=== PATIENT | female | born 1995 | race African-American/Black ===

== ENCOUNTER 2018-05-10 04:47 | Emergency (ER) | payer SELFPAY ==
--- NOTE | 2018-05-10 07:16 | ER Document Report ---
ED GI/ - General Chief Complaint: Vaginal Discharge Stated Complaint: VAGINAL PROBLEM Time Seen by Provider: 05/10/18 07:06 Mode of Arrival: Ambulatory Information source: Patient Notes: Patient presents with complaint of foul-smelling vaginal discharge. Patient reports the discharge is no different than her usual other than the smell. Patient says this is been going on for approximately 3-4 days. Patient reports history of bacterial vaginosis and states this is similar. Patient denies any other symptoms to include abdominal pain, vaginal pain or fever. Patient denies possibility of . TRAVEL OUTSIDE OF THE [place] IN LAST 30 DAYS: No - Related Data Allergies/Adverse Reactions: No Known Allergies Allergy (Unverified 05/10/18 06:25) Past Medical History - General Information source: Patient - Social History Smoking Status: Never Smoker Chew tobacco use (# tins/day): No Frequency of alcohol use: None Drug Abuse: None Family History: Reviewed & Not Pertinent Patient has suicidal ideation: No Patient has homicidal ideation: No - Medical History Medical History: Negative Renal/ Medical History: Denies: Hx Peritoneal Dialysis Surgical Hx: Negative - Immunizations Immunizations up to date: Yes Review of Systems - Review of Systems Constitutional: No symptoms reported EENT: No symptoms reported Cardiovascular: No symptoms reported Respiratory: No symptoms reported Gastrointestinal: No symptoms reported Genitourinary: No symptoms reported Female Genitourinary: Vaginal odor Musculoskeletal: No symptoms reported Skin: No symptoms reported Hematologic/Lymphatic: No symptoms reported Neurological/Psychological: No symptoms reported Physical Exam - Vital signs Vitals: Temp Pulse Resp BP Pulse Ox 98 F 108 H 16 123/78 100 05/10/18 04:56 05/10/18 04:56 05/10/18 04:56 05/10/18 04:56 05/10/18 04:56 - Notes Notes: PHYSICAL EXAMINATION: GENERAL: Well-appearing, well-nourished and in no acute distress. HEAD: Atraumatic, normocephalic. EYES: Pupils equal round and reactive to light, extraocular movements intact, conjunctiva are normal. ENT: Nares patent, oropharynx clear without exudates. Moist mucous membranes. NECK: Normal range of motion, supple without lymphadenopathy LUNGS: Breath sounds clear to auscultation bilaterally and equal. No wheezes rales or rhonchi. HEART: Regular rate and rhythm without murmurs ABDOMEN: Soft, nontender, nondistended abdomen. No guarding, no rebound. No masses appreciated. Female : Purulent non-foul smelling white discharge from the cervical loss noted on speculum exam. No cervical motion tenderness, no adnexal tenderness. Musculoskeletal: Normal range of motion, no pitting or edema. No cyanosis. NEUROLOGICAL: Cranial nerves grossly intact. Normal speech, normal gait. Normal sensory, motor exams PSYCH: Normal mood, normal affect. SKIN: Warm, Dry, normal turgor, no rashes or lesions noted. Course - Re-evaluation Re-evalutation: 3+ bacteria noted on wet mount. Patient will be treated for bacterial vaginosis. - Vital Signs Vital signs: Temp Pulse Resp BP Pulse Ox 98.0 F 108 H 16 102/79 99 05/10/18 09:55 05/10/18 09:55 05/10/18 04:56 05/10/18 09:55 05/10/18 09:55 - Laboratory Laboratory results interpreted by me: 05/10/18 06:00 Urine Protein 30 H Ur Leukocyte Esterase TRACE H Discharge - Discharge Clinical Impression: Bacterial vaginosis Condition: Stable Disposition: HOME, SELF-CARE Additional Instructions: Vaginosis, Bacterial Your exam shows you have bacterial vaginosis. This condition is due to an overgrowth of bacteria in the vagina. Symptoms may include vaginal itching or pain, a smelly discharge, and sometimes burning with urination. Normally this is not transmitted by sexual contact. Vaginosis can be treated with oral or topical antibiotics. Metronidazole ( Flagyl) pills are usually effective. Topical vaginal creams include Cleocin and Metro-Gel. You should avoid sexual contact until your symptoms are all better. Call the doctor if you develop pelvic pain, fever, or problems with urination, or if you don't improve as expected. Metronidazole Metronidazole (Flagyl) has been prescribed. This medication is used to kill a type of bacteria called anaerobes, and protozoan parasites such as trichomonas and Giardia. Flagyl often causes a metallic taste in the mouth and mild nausea. Do not use alcohol in any form with Flagyl (including alcohol in medication elixirs). Flagyl interacts with alcohol to cause flushing, palpitations, headache, stomach cramps, and vomiting. Do not use Flagyl if you are taking Antabuse (disulfiram). Call the doctor at once if you develop rash, shortness of breath, itching, or lightheadedness. Please take medication as prescribed. Absolutely no alcohol consumption while taking this medicine. No sexual activity until you completed the entire course of medication for the next 7 days. Prescriptions: Metronidazole [Flagyl 500 mg Tablet] 500 mg PO BID #14 tablet
[2018-05-10 07:26] LABS: APPEARANCE,URINE SLIGHTLY-CLOUDY; BILIRUBIN,URINE NEGATIVE (NEGATIVE); COLOR,URINE YELLOW; GLUCOSE, URINE NEGATIVE (NEGATIVE); KETONES,URINE NEGATIVE (NEGATIVE); LEUKOCYTE ESTERASE,URINE TRACE (NEGATIVE); NITRITE,URINE NEGATIVE (NEGATIVE); PROTEIN,URINE 30 mg/dL (NEGATIVE); URINE SPECIFIC GRAVITY 1.006; UROBILINOGEN,URINE NEGATIVE mg/dL (<2.0)
[2018-05-10 08:08] LABS: T.VAGINALIS (WET MOUNT) NO TRICHOMONAS SEEN; YEAST (WET MOUNT) NO YEAST SEEN
[2018-05-10 08:09] LABS: BACTERIA (WET MOUNT) 3+ BACTERIA SEEN; EPITHELIALS (WET MOUNT) 3+ EPITHELIALS SEEN; RBCS (WET MOUNT) NO RBCS SEEN; WBCS (WET MOUNT) 2+ WBCS SEEN
[2018-05-10 09:32] LABS: CHLAM PCR NOT DETECTED (NOT DETECT); GON PCR NOT DETECTED (NOT DETECT)
[2018-05-10 09:55] VITALS: BP 102/79
== END 2018-05-10 09:55 | disposition home or self-care (01) ==
LOC: ER 04:47
DX: N76.0 Acute vaginitis (principal); B96.89 Other specified bacterial agents as the cause of diseases classified elsewhere
CPT/HCPCS: 81001; 87210; 87491; 87591; 99283

== ENCOUNTER 2018-07-18 04:56 | Emergency (ER) | payer SELFPAY ==
[2018-07-18] MEDS ORDERED: NORMAL SALINE 1000 ML 1,000 ML IV ONE ×2 (05:11→05:21)
[2018-07-18] MEDS ORDERED: ONDANSETRON HCL INJ/PF 4 MG/2 ML SDV IV ONE (05:21)
--- NOTE | 2018-07-18 05:25 | ER Document Report ---
ED Medical Screen (RME) - General Chief Complaint: Nausea/Vomiting Stated Complaint: CHEST PAINS, VOMITING, CONGESTIONS, SORE THROAT Time Seen by Provider: 07/18/18 05:15 Notes: 22-year-old female chief complaint of cold symptoms for a week but worsening over the past day with 2 episodes of vomiting and a pain in her left lower rib area with inspiration. Denies fevers. States she is felt dry and dehydrated. Denies any abdominal pain. Denies dizziness or current chest pain. TRAVEL OUTSIDE OF THE [place] IN LAST 30 DAYS: No - Related Data Allergies/Adverse Reactions: No Known Allergies Allergy (Unverified 05/10/18 06:25) Past Medical History Renal/ Medical History: Denies: Hx Peritoneal Dialysis - Immunizations Immunizations up to date: Yes Physical Exam - Vital signs Vitals: Temp Pulse Resp BP Pulse Ox 98.1 F 78 20 133/68 H 98 07/18/18 05:01 07/18/18 05:01 07/18/18 05:01 07/18/18 05:01 07/18/18 05:01 - General General appearance: Appears well In distress: None - Abdominal Inspection: Normal Tenderness: Nontender Course - Re-evaluation Re-evalutation: I have greeted and performed a rapid initial assessment of this patient. A comprehensive ED assessment and evaluation of the patient, analysis of test results and completion of the medical decision making process will be conducted by additional ED providers. - Vital Signs Vital signs: Temp Pulse Resp BP Pulse Ox 98.1 F 78 20 133/68 H 98 07/18/18 05:01 07/18/18 05:01 07/18/18 05:01 07/18/18 05:01 07/18/18 05:01
[2018-07-18 05:35] LABS: ABSOLUTE EOSINOPHILS # (AUTO) 0.3 10^3/uL (0.0-0.6); ABSOLUTE LYMPHOCYTES (AUTO) 3.2 10^3/uL (0.5-4.7); ABSOLUTE MONOCYTES (AUTO) 1.2 10^3/uL (0.1-1.4); ABSOLUTE NEUT (AUTO) 8.1 10^3/uL (1.7-8.2); BASOPHILS % (AUTO) 0.2 % (0-2); EOSINOPHILS % (AUTO) 2.4 % (0-6); HEMATOCRIT 40.6 % (36.0-47.0); HEMOGLOBIN 13.9 g/dL (12.0-15.5); MEAN CORPUSCULAR HEMOGLOBIN 33.4 pg (27.0-33.4); MEAN CORPUSCULAR HGB CONC 34.3 g/dL (32.0-36.0); MEAN CORPUSCULAR VOLUME 97 fl (80-97); MONOCYTES % (AUTO) 9.3 % (3-13); PLATELET COUNT 241 10^3/uL (150-450); RED BLOOD COUNT 4.17 10^6/uL (3.72-5.28); RED CELL DISTRIBUTION WIDTH 12.4 % (11.5-14.0); SEGMENTED NEUTROPHILS % (AUTO) 63.1 % (42-78); TOTAL CELLS COUNTED % (AUTO) 100 %; WHITE BLOOD COUNT 12.9 10^3/uL (4.0-10.5)
[2018-07-18 05:49] LABS: ALANINE AMINOTRANSFERASE 13 U/L (9-52); ALBUMIN 4.8 g/dL (3.5-5.0); ALKALINE PHOSPHATASE 69 U/L (38-126); ANION GAP 14 (5-19); ASPARTATE AMINO TRANSFERASE 23 U/L (14-36); BILIRUBIN,DIRECT 0.2 mg/dL (0.0-0.4); BILIRUBIN,TOTAL 1.2 mg/dL (0.2-1.3); BLOOD UREA NITROGEN 10 mg/dL (7-20); CALCIUM 10.3 mg/dL (8.4-10.2); CARBON DIOXIDE 28 mmol/L (22-30); CHLORIDE 100 mmol/L (98-107); GLUCOSE 93 mg/dL (75-110); POTASSIUM 3.9 mmol/L (3.6-5.0); SODIUM 141.9 mmol/L (137-145); TOTAL PROTEIN 8.3 g/dL (6.3-8.2)
--- NOTE | 2018-07-18 05:51 | RADIOLOGY REPORT (SQ) ---
EXAM DESCRIPTION: XR CHEST 2 VIEWS COMPLETED DATE/TME: 07/18/2018 05:21 CLINICAL HISTORY: 22 years Female, left lower chest pain COMPARISON: None. FINDINGS: Increased lung volume, clear parenchyma, normal cardiac silhouette, and intact bony thorax. IMPRESSION: No acute cardiopulmonary findings.
[2018-07-18 06:41] LABS: APPEARANCE,URINE CLEAR; BILIRUBIN,URINE NEGATIVE (NEGATIVE); COLOR,URINE YELLOW; GLUCOSE, URINE NEGATIVE (NEGATIVE); KETONES,URINE NEGATIVE (NEGATIVE); LEUKOCYTE ESTERASE,URINE NEGATIVE (NEGATIVE); NITRITE,URINE NEGATIVE (NEGATIVE); PROTEIN,URINE NEGATIVE (NEGATIVE); URINE SPECIFIC GRAVITY 1.006
--- NOTE | 2018-07-18 06:53 | ER Document Report ---
ED General - General Chief Complaint: Nausea/Vomiting Stated Complaint: CHEST PAINS, VOMITING, CONGESTIONS, SORE THROAT Time Seen by Provider: 07/18/18 05:15 Mode of Arrival: Ambulatory Information source: Patient TRAVEL OUTSIDE OF THE [place] IN LAST 30 DAYS: No - HPI Patient complains to provider of: nausea Onset: Other - 22-year-old otherwise healthy female that presents for evaluation of nausea as well as symptoms suggestive of a cold over the last week which she attributes to sharing food and drink with a sick child. She has been feeling intermittently warm at night since then. She has had 2 episodes of emesis which prompted her to seek care this morning. She notes that she had gone to smoke a cigarette last night while having difficulty in sleeping thereafter upon returning to the house had the sensation that she was nauseous and going to vomit. She denies fevers, she denies chills, she denies abdominal pain constipation dysuria rashes or other symptoms. In the past she has had seasonal allergies. - Related Data Allergies/Adverse Reactions: No Known Allergies Allergy (Unverified 05/10/18 06:25) Past Medical History - General Information source: Patient - Social History Smoking Status: Never Smoker Smoking Education Provided: Yes Family History: Reviewed & Not Pertinent Patient has suicidal ideation: No Patient has homicidal ideation: No Renal/ Medical History: Denies: Hx Peritoneal Dialysis - Immunizations Immunizations up to date: Yes Review of Systems - Review of Systems -: Yes All other systems reviewed and negative Physical Exam - Vital signs Vitals: Temp Pulse Resp BP Pulse Ox 98.1 F 78 20 133/68 H 98 07/18/18 05:01 07/18/18 05:01 07/18/18 05:01 07/18/18 05:01 07/18/18 05:01 - General General appearance: Appears well In distress: None - HEENT Head: Normocephalic Eyes: Normal Conjunctiva: Normal Cornea: Normal Extraocular movements intact: Yes Eyelashes: Normal Pupils: PERRL - Respiratory Respiratory status: No respiratory distress Chest status: Nontender Breath sounds: Normal Chest palpation: Normal - Cardiovascular Rhythm: Regular Heart sounds: Normal auscultation Murmur: No - Abdominal Inspection: Normal Distension: No distension Bowel sounds: Normal Tenderness: Nontender Organomegaly: No organomegaly - Back Back: Normal, Nontender - Extremities General upper extremity: Normal inspection, Nontender, Normal color, Normal ROM , Normal temperature General lower extremity: Normal inspection, Nontender, Normal color, Normal ROM , Normal temperature, Normal weight bearing. No: Jenifer's sign - Neurological Neuro grossly intact: Yes Cognition: Normal Orientation: AAOx4 Fitzhugh Coma Scale Eye Opening: Spontaneous Stacie Coma Scale Verbal: Oriented Fitzhugh Coma Scale Motor: Obeys Commands Fitzhugh Coma Scale Total: 15 Speech: Normal Motor strength normal: LUE, RUE, LLE, RLE Sensory: Normal - Psychological Associated symptoms: Normal affect, Normal mood Course - Re-evaluation Re-evalutation: 07/18/18 06:50 22-year-old female with signs and symptoms suggestive of a cold. She did have 2 episodes of emesis one several days ago and one this morning. She also complains of some dry mouth. On examination she is remarkably well-appearing, she has a normal cardiopulmonary examination, has a normal work of breathing, has a reassuring abdominal examination without any focal rebound or guarding. Prior to my evaluation she had labs drawn as well as a chest x-ray performed and fluids ordered as well as an antinausea medication. While I am evaluating her in the room she is actively eating. She was able to drink an entire bottle of juice as well prior to my evaluation. On review her chest x-ray is unremarkable, her labs are reassuring, because she is able to tolerate p.o. with a reassuring abdominal examination and signs and symptoms suggestive of a cold we will plan for her to undergo discharge with return precautions. I did speak to her about the importance of tobacco cessation moving forward. - Vital Signs Vital signs: Temp Pulse Resp BP Pulse Ox 98.1 F 78 20 133/68 H 98 07/18/18 05:01 07/18/18 05:01 07/18/18 05:01 07/18/18 05:01 07/18/18 05:01 - Laboratory Result Diagrams: 07/18/18 05:25 07/18/18 05:25 Laboratory results interpreted by me: 07/18/18 07/18/18 07/18/18 05:25 05:25 06:30 WBC 12.9 H Calcium 10.3 H Total Protein 8.3 H Urine Urobilinogen 4.0 H Discharge - Discharge Clinical Impression: Tobacco use URI (upper respiratory infection) Qualifiers: URI type: unspecified URI Qualified Code(s): J06.9 - Acute upper respiratory infection, unspecified Emesis Qualifiers: Vomiting type: unspecified Vomiting Intractability: unspecified Nausea presence : unspecified Qualified Code(s): R11.10 - Vomiting, unspecified Condition: Good Disposition: HOME, SELF-CARE Instructions: Viral Syndrome ([facility]), Antinausea Medication ([facility]), Acetaminophen Additional Instructions: You were seen today in the emergency department for your nausea, your pain, and your throat discomfort. Your blood work shows that you are not anemic. Your blood work shows that you are not markedly dehydrated. Your chest x-ray is normal. I think that you have a viral infection. You should use Motrin as well as Tylenol to help with your symptoms, take 400 mg of Motrin every 6 hours and 1 g of Tylenol every 6 hours. Make sure you are drinking lots of fluids. Use the nausea medication prescribed to you as needed. Return for worsening fevers or chills worsening pain or lightheadedness otherwise schedule an appointment with your primary physician in the next 3 days for a recheck. Prescriptions: Acetaminophen [Pain & Fever] 500 mg PO Q6H PRN #50 tablet PRN Reason: Ibuprofen [Ibu] 400 mg PO Q6 PRN #40 tablet PRN Reason: Ondansetron [Zofran Odt 4 mg Tablet] 1 - 2 tab PO Q4H PRN #15 tab.rapdis PRN Reason: For Nausea/Vomiting Forms: Smoking Cessation Education
[2018-07-18 07:24] VITALS: BP 122/78
== END 2018-07-18 07:24 | disposition home or self-care (01) ==
LOC: ER 04:56
DX: J02.9 Acute pharyngitis, unspecified (principal); J06.9 Acute upper respiratory infection, unspecified; R11.10 Vomiting, unspecified; R07.9 Chest pain, unspecified
CPT/HCPCS: 99284; 36415; 84703; 85025; 80053; 81001; 71046; J2405; J7030

== ENCOUNTER 2018-11-05 00:48 | Emergency (ER) | payer SELFPAY ==
[2018-11-05 01:17] VITALS: BP 126/67
[2018-11-05 04:01] LABS: ABSOLUTE EOSINOPHILS # (AUTO) 0.7 10^3/uL (0.0-0.6); ABSOLUTE LYMPHOCYTES (AUTO) 1.9 10^3/uL (0.5-4.7); ABSOLUTE MONOCYTES (AUTO) 0.9 10^3/uL (0.1-1.4); ABSOLUTE NEUT (AUTO) 4.7 10^3/uL (1.7-8.2); BASOPHILS % (AUTO) 0.6 % (0-2); EOSINOPHILS % (AUTO) 8.2 % (0-6); HEMATOCRIT 38.3 % (36.0-47.0); HEMOGLOBIN 13.1 g/dL (12.0-15.5); LYMPHOCYTES % (AUTO) 23.4 % (13-45); MEAN CORPUSCULAR HEMOGLOBIN 33.5 pg (27.0-33.4); MEAN CORPUSCULAR HGB CONC 34.1 g/dL (32.0-36.0); MEAN CORPUSCULAR VOLUME 98 fl (80-97); MONOCYTES % (AUTO) 11.3 % (3-13); PLATELET COUNT 211 10^3/uL (150-450); RED CELL DISTRIBUTION WIDTH 13.1 % (11.5-14.0); SEGMENTED NEUTROPHILS % (AUTO) 56.5 % (42-78); TOTAL CELLS COUNTED % (AUTO) 100 %; WHITE BLOOD COUNT 8.3 10^3/uL (4.0-10.5)
[2018-11-05 04:17] LABS: ANION GAP 10 (5-19); BLOOD UREA NITROGEN 5 mg/dL (7-20); CALCIUM 9.9 mg/dL (8.4-10.2); CARBON DIOXIDE 25 mmol/L (22-30); CHLORIDE 106 mmol/L (98-107); GLUCOSE 84 mg/dL (75-110); POTASSIUM 4.1 mmol/L (3.6-5.0); SODIUM 141.2 mmol/L (137-145)
--- NOTE | 2018-11-05 04:25 | ER Document Report ---
ED General - General Chief Complaint: Shortness Of Breath Stated Complaint: SHORTNESS OF BREATH Time Seen by Provider: 11/05/18 03:36 Primary Care Provider: [facility] [Provider Group] - Follow up as needed Notes: Patient is a 23-year-old female that comes to the emergency department for chief complaint of an episode prior to arrival where she states she felt like her tongue was getting larger, it was difficult to swallow, she felt a tightness sensation in her chest, she felt tingling in her extremities. She states that she has actually felt the same symptoms several times in the past for the past 6 months, states it was worse today so she came in for evaluation. She states she checked her tongue in the mirror and it did not appear swollen. Patient reports a history of anxiety, she was previously treated for this, elected to not be treated for this after some time. She denies recreational drugs. She denies caffeine. She does smoke. She denies alcohol. LMP within the past month. Patient stating she just wants to get checked out to make sure she is okay. TRAVEL OUTSIDE OF THE [place] IN LAST 30 DAYS: No - Related Data Allergies/Adverse Reactions: No Known Allergies Allergy (Unverified 05/10/18 06:25) Past Medical History - General Information source: Patient - Social History Smoking Status: Current Every Day Smoker Chew tobacco use (# tins/day): No Frequency of alcohol use: Occasional Drug Abuse: None Lives with: Family Family History: Reviewed & Not Pertinent Patient has suicidal ideation: No Patient has homicidal ideation: No Renal/ Medical History: Denies: Hx Peritoneal Dialysis Surgical Hx: Negative - Immunizations Immunizations up to date: Yes Review of Systems - Review of Systems Constitutional: See HPI EENT: See HPI Cardiovascular: See HPI Respiratory: See HPI Gastrointestinal: No symptoms reported Genitourinary: No symptoms reported Female Genitourinary: No symptoms reported Musculoskeletal: See HPI Skin: No symptoms reported Hematologic/Lymphatic: No symptoms reported Neurological/Psychological: See HPI Physical Exam - Vital signs Vitals: Temp Pulse Resp BP Pulse Ox 98.6 F 81 22 H 126/67 H 97 11/05/18 01:15 11/05/18 01:15 11/05/18 01:15 11/05/18 01:15 11/05/18 01:15 - Notes Notes: GENERAL: Alert, interacts well. No acute distress. HEAD: Normocephalic, atraumatic. EYES: Pupils equal, round, and reactive to light. Extraocular movements intact. ENT: Oral mucosa moist, tongue midline. Oropharynx unremarkable. Airway patent. Nares patent, no nasal septal hematoma, TM's intact. NECK: Full range of motion. Supple. Trachea midline. LUNGS: Clear to auscultation bilaterally, no wheezes, rales, or rhonchi. No respiratory distress. HEART: Regular rate and rhythm. No murmur ABDOMEN: Soft, non-tender. Non-distended. Bowel sounds present in all 4 quadrants. GENITOURINARY: Deferred EXTREMITIES: Moves all 4 extremities spontaneously. No edema, normal radial and dorsalis pedis pulses bilaterally. No cyanosis. BACK: no cervical, thoracic, lumbar midline tenderness. No saddle anesthesia, normal distal neurovascular exam. NEUROLOGICAL: Alert and oriented x3. Normal speech. [cranial nerves II through XII grossly intact]. PSYCH: Normal affect, normal mood. SKIN: Warm, dry, normal turgor. No rashes or lesions noted. Course - Re-evaluation Re-evalutation: Patient asymptomatic on my evaluation. She reports that she thinks this was a panic attack but she wants a evaluation to make sure she is okay. As result tests will be performed. Her physical examination is unremarkable, no signs of anaphylaxis or other concerning findings. Patient is not suicidal or homicidal. EKG sinus rhythm with no T wave inversions or ST segment changes in consecutive leads. Unremarkable [place] interval and QTc. Patient initially agreed to but then refused a chest x-ray. I did recommend it but she refused. She states she has had normal ones in the past and she does not want one. She has no current symptoms, clear lungs, unremarkable vital signs. CBC shows elevation of eosinophils but otherwise unremarkable. Chemistry unremarkable. Urine drug screen shows marijuana but otherwise unremarkable. Urinalysis unremarkable, test is negative. Before I could reevaluate the patient was told she left the department. Patient went out to the waiting room where her significant other was, her significant other came in and talk to me. They asked why she was so upset. I discussed how patient had wanted a workup and this was provided. They state understanding, they state patient is requesting to leave and asking for discharge instructions with recommendations. They also state that patient is agreeable to medications such as medication for panic attack and would like this prescribed. Patient had suggested this when she was evaluated initially. She was provided with Cristi, [employer]. I did take her discharge instructions to the lead front desk agent and these were provided to them for the left. They state that patient has been having a lot of trouble with seasonal allergies. They state they will follow-up with port. Recommended return precautions. Patient stable time of discharge. - Vital Signs Vital signs: Temp Pulse Resp BP Pulse Ox 98.6 F 81 22 H 126/67 H 97 11/05/18 01:15 11/05/18 01:15 11/05/18 01:15 11/05/18 01:15 11/05/18 01:15 - Laboratory Result Diagrams: 11/05/18 03:50 11/05/18 03:50 Laboratory results interpreted by me: 11/05/18 11/05/18 11/05/18 03:50 03:50 05:02 MCV 98 H MCH 33.5 H Eosinophils % 8.2 H Absolute Eosinophils 0.7 H BUN 5 L Urine Ketones TRACE H Urine Blood LARGE H Discharge - Discharge Clinical Impression: Panic attack Chest pain Qualifiers: Chest pain type: unspecified Qualified Code(s): R07.9 - Chest pain, unspecified Condition: Stable Disposition: HOME, SELF-CARE Additional Instructions: Your workup does suggest an allergic shift on your blood counts, however your evaluation does not show severe allergic reaction or anaphylaxis. I do recom mend that you take a daily antiallergy medication, this was prescribed. Take as directed. Your remaining evaluation does not show any concerning abnormality. Your symptoms are most consistent with a panic attack, I recommend taking the Vistaril as needed for this, this is not addictive and can be used as needed. I also recommend that you follow-up with the psychiatry referral, you may benefit from additional management, psychiatry, or a therapist. Return for any concerning symptoms, see additional instructions below. Panic Attack The cause of panic attacks is unknown. Symptoms can include chest pain, shortness of breath, palpitations, sweats, and a sense of smothering or impending doom. In time, the panic attacks can lead to generalized anxiety and phobias. Because the symptoms can mimic heart attack, pulmonary embolism, and other serious diseases, the physician has evaluated you for these conditions. There is no evidence of a serious problem. An acute panic attack usually goes away by itself without treatment. A severe attack can be treated with medicine to calm you. Long-term, antidepressant medicines may help prevent attacks. Counselling can also be very beneficial in dealing with panic attacks. Panic attacks are less likely if you are getting regular exercise, proper diet, and plenty of sleep. It's normal for panic attacks to cause many frightening symptoms. However, you should call or return if your symptoms change significantly or if you are worsening. Prescriptions: Cetirizine HCl [24Hour Allergy] 10 mg PO DAILY #30 tablet Hydroxyzine Pamoate [Vistaril 25 mg Capsule] 1 - 2 cap PO Q6 PRN #30 capsule PRN Reason: Forms: Return to Work, Treatment of Relative/Child Referrals: [facility] [Provider Group] - Follow up as needed
[2018-11-05 05:16] LABS: APPEARANCE,URINE CLEAR; BILIRUBIN,URINE NEGATIVE (NEGATIVE); COLOR,URINE STRAW; GLUCOSE, URINE NEGATIVE (NEGATIVE); KETONES,URINE TRACE mg/dL (NEGATIVE); LEUKOCYTE ESTERASE,URINE NEGATIVE (NEGATIVE); NITRITE,URINE NEGATIVE (NEGATIVE); PROTEIN,URINE NEGATIVE (NEGATIVE); URINE SPECIFIC GRAVITY 1.003; UROBILINOGEN,URINE NEGATIVE mg/dL (<2.0)
[2018-11-05 05:38] LABS: URINE AMPHETAMINES SCREEN NEGATIVE; URINE BARBITURATES SCREEN NEGATIVE; URINE BENZODIAZEPINES SCREEN NEGATIVE; URINE COCAINE SCREEN NEGATIVE; URINE MARIJUANA (THC) SCREEN UNCONFIRMED POSITIVE; URINE METHADONE SCREEN NEGATIVE; URINE PHENCYCLIDINE SCREEN NEGATIVE
--- NOTE | 2018-11-05 19:18 | EKG REPORT ---
SEVERITY:- OTHERWISE NORMAL ECG - SINUS RHYTHM BORDERLINE RIGHT AXIS DEVIATION : Confirmed by: Sindi Rob MD 05-Nov-2018 19:18:05
== END 2018-11-05 06:24 | disposition home or self-care (01) ==
LOC: ER 00:48
DX: F41.0 Panic disorder [episodic paroxysmal anxiety] (principal); R07.9 Chest pain, unspecified; R06.02 Shortness of breath; F17.200 Nicotine dependence, unspecified, uncomplicated
CPT/HCPCS: 36415; 80048; 80307; 81001; 81025; 85025; 93005; 93010; 99285

== ENCOUNTER 2019-01-26 12:06 | Emergency (ER) | payer SELFPAY ==
[2019-01-26 12:15] VITALS: BP 107/88
[2019-01-26] MEDS ORDERED: HYDROCODONE/ACETAMINOPHEN 5-325 MG TABLET PO ONE (12:52)
--- NOTE | 2019-01-26 12:54 | ER Document Report ---
HPI - HPI Patient complains to provider of: left foot injury Time Seen by Provider: 01/26/19 12:29 Onset: Yesterday Onset/Duration: Gradual Quality of pain: Sharp Pain Level: 5 Context: She states she was wrestling around last night and may have injured her foot. Patient states she did not have immediate left foot tenderness last night but woke up with severe pain today. Patient complains of pain with walking and weightbearing. Associated Symptoms: Other - Left foot pain Exacerbated by: Standing, Movement, Walking Relieved by: Denies Similar symptoms previously: No Recently seen / treated by doctor: No - ROS ROS below otherwise negative: Yes Systems Reviewed and Negative: Yes All other systems reviewed and negative - CONSTITUTIONAL Constitutional: DENIES: Fever, Chills - REPRODUCTIVE Reproductive: DENIES: : - MUSCULOSKELETAL Musculoskeletal: REPORTS: Extremity pain - Left foot. DENIES: Back Pain, Neck Pain - DERM Skin Color: Normal Skin Problems: None Past Medical History - General Information source: Patient - Social History Smoking Status: Current Every Day Smoker Smoking Education Provided: Yes Frequency of alcohol use: Occasional Drug Abuse: None Occupation: [employer] Family History: Reviewed & Not Pertinent Patient has suicidal ideation: No Patient has homicidal ideation: No - Medical History Medical History: Negative Renal/ Medical History: Denies: Hx Peritoneal Dialysis Surgical Hx: Negative - Immunizations Immunizations up to date: Yes Vertical Provider Document - CONSTITUTIONAL Agree With Documented VS: Yes Exam Limitations: No Limitations General Appearance: WD/WN, No Apparent Distress - INFECTION CONTROL TRAVEL OUTSIDE OF THE [place] IN LAST 30 DAYS: No - HEENT HEENT: Atraumatic, Normocephalic - NECK Neck: Normal Inspection - RESPIRATORY Respiratory: No Respiratory Distress - CARDIOVASCULAR Pulses: Normal: Dorsalis pedis - MUSCULOSKELETAL/EXTREMETIES Musculoskeletal/Extremeties: MAEW, Tender - Left medial midfoot tenderness, patient exaggerated pain response with minimal palpation. No obvious ecchymosis. - NEURO Level of Consciousness: Awake, Alert, Appropriate Motor/Sensory: No Motor Deficit - DERM Integumentary: Warm, Dry Course - Re-evaluation Re-evalutation: 01/26/19 13:48 Patient without any acute fracture noted on x-ray. No objective injury noted on foot. Will immobilize and encourage outpatient follow-up with orthopedics. - Vital Signs Vital signs: Temp Pulse Resp BP Pulse Ox 97.9 F 87 16 107/88 H 96 01/26/19 12:14 01/26/19 12:14 01/26/19 12:14 01/26/19 12:14 01/26/19 12:14 - Diagnostic Test Radiology reviewed: Image reviewed, Reports reviewed Procedures - Immobilization Left Foot Pre-Proc Neuro Vasc Exam: Normal Immobilizer type: Post-op shoe Performed by: PCT Post-Proc Neuro Vasc Exam: Normal Alignment checked and good: Yes Discharge - Discharge Clinical Impression: Sprain of left foot Qualifiers: Encounter type: initial encounter Qualified Code(s): S93.602A - Unspecified sprain of left foot, initial encounter Condition: Stable Disposition: HOME, SELF-CARE Instructions: Use of Crutches ([facility]), Ice & Elevation ([facility]), Post-Op Shoe ([facility]), Sprain ([facility]) Additional Instructions: Return immediately for any new or worsening symptoms Followup with your primary care provider, call tomorrow to make a followup appointment Weightbearing as tolerated Follow-up with orthopedics for further evaluation, call tomorrow for follow-up appointment Prescriptions: Naproxen [Naprosyn 250 Nmg Tablet] 1 tab PO BID #14 tablet Forms: Smoking Cessation Education, Return to Work Referrals: [facility] [Provider Group] - Follow up as needed
--- NOTE | 2019-01-26 13:32 | RADIOLOGY REPORT (SQ) ---
EXAM DESCRIPTION: FOOT LEFT COMPLETE COMPLETED DATE/TIME: 01/26/2019 1:11 pm REASON FOR STUDY: L mid foot pain, wrestling COMPARISON: None. NUMBER OF VIEWS: Three views. TECHNIQUE: AP, lateral and oblique radiographic images acquired of the left foot. LIMITATIONS: None. FINDINGS: MINERALIZATION: Normal. BONES: No acute fracture or dislocation. No worrisome bone lesions. JOINTS: No effusions. SOFT TISSUES: No soft tissue swelling. No foreign body. OTHER: No other significant finding. IMPRESSION: NEGATIVE STUDY OF THE LEFT FOOT. NO RADIOGRAPHIC EVIDENCE OF ACUTE INJURY. TECHNICAL DOCUMENTATION: JOB ID: [id number] [employer]- All Rights Reserved Reading location - IP/workstation name: [email or web address]
== END 2019-01-26 14:04 | disposition home or self-care (01) ==
LOC: ER 12:06
DX: S93.602A Unspecified sprain of left foot, initial encounter (principal); X58.XXXA Exposure to other specified factors, initial encounter; M79.672 Pain in left foot; F17.200 Nicotine dependence, unspecified, uncomplicated
CPT/HCPCS: 99283